=== PATIENT | female | born 1940 | race Two or more races ===

== ENCOUNTER → 2016-08-17 | Outpatient (CLI) | payer OTHER ==
[~2016-08-17] MED LIST: ASPI-556 PO; CHOL200016 PO; FISH1CAP27 PO; FURO20 PO; HYDR-3965 PO; INSLAN SQ; OMEP20 PO; REPA2 PO; SIMV-261 PO; SODI650T PO; [UNRECOGNIZED DRUG - CODE] IV
== END | disposition home or self-care (01) ==
LOC: RADPV 11:57
PROVIDERS: ATTEND Family Medicine
DX: Z01.818 Encounter for other preprocedural examination (principal); I10 Essential (primary) hypertension; I70.0 Atherosclerosis of aorta
CPT/HCPCS: 71020

== ENCOUNTER → 2016-09-08 | Outpatient (CLI) | payer OTHER ==
[~2016-09-08] MED LIST changes: -SIMV-261 PO; +SIMV40 PO
== END | disposition home or self-care (01) ==
LOC: RADPV 10:26
PROVIDERS: ATTEND Family Medicine
DX: M81.0 Age-related osteoporosis without current pathological fracture (principal); Z87.81 Personal history of (healed) traumatic fracture
CPT/HCPCS: 77080

== ENCOUNTER 2018-09-28 16:16 | Emergency (ER) | payer OTHER ==
[~2018-09-28] VITALS: Ht 152.4 cm; Wt 79.5 kg
[~2018-09-28 16:16] MED LIST changes: -CHOL200016 PO; +CHOL200059 PO; -HYDR-3965 PO; +HYDR-4061 PO; +SIMV-261 PO; -SIMV40 PO
[2018-09-28] MEDS ORDERED: FURO40 PO (16:33)
[2018-09-28] MEDS ORDERED: LINA5TAB PO (16:33)
[2018-09-28] MEDS ORDERED: ALEN70TA10 PO (16:33)
[2018-09-28] MEDS ORDERED: MECL-111 PO (16:33)
[2018-09-28 16:40] LABS: GLUCOSE,POINT OF CARE 75 MG/DL (70-110)
[2018-09-28] MEDS ORDERED: ACETAMINOPHEN 500 MG TABLET PO ONE (19:00)
[2018-09-28 19:52] VITALS: BP 132/77
== END 2018-09-28 19:56 | disposition home or self-care (01) ==
LOC: EMS 16:17
DX: J40 Bronchitis, not specified as acute or chronic (principal); I11.0 Hypertensive heart disease with heart failure; I50.9 Heart failure, unspecified; E11.9 Type 2 diabetes mellitus without complications; E78.00 Pure hypercholesterolemia, unspecified; Z79.4 Long term (current) use of insulin; Z79.82 Long term (current) use of aspirin; Z79.899 Other long term (current) drug therapy